=== PATIENT | female | born 1980 | race Caucasian/White ===

== ENCOUNTER 2020-08-16 16:43 | Emergency (ER) | payer OTHER ==
[~2020-08-16] VITALS: Ht 160 cm; Wt 59.0 kg
--- NOTE | 2020-08-16 16:52 | NUR ---
Patient ambulated to bed 12. RN evaluating the patient at bedside.
[2020-08-16 16:53] VITALS: BP 110/56
--- NOTE | 2020-08-16 16:59 | NUR ---
39 Y/F PRESENTS TO ED FOR R KNEE PAIN X 1 WEEK AFTER PLAYING WITH HER KIDS, FELICITA YAÑEZED KNEE. REPORTS PAIN IS WORSE WHEN BEARING WEIGHT. REPORTS 7/10 PAIN ON AND OFF. NO SWELLING OR BRUSIING NOTED. PMH- MIGRAINES RX- MOTRIN NKDA
--- NOTE | 2020-08-16 16:59 | NUR ---
DR. ESCOBAR AT BEDSIDE EVALUATING PT.
[2020-08-16] MEDS ORDERED: IBUP-2213 PO (17:22)
[2020-08-16 17:28] VITALS: BP 110/56
== END 2020-08-16 17:27 | disposition home or self-care (01) ==
LOC: MED 16:43
DX: M25.561 Pain in right knee (principal)
CPT/HCPCS: 99282